=== PATIENT | male | born 1965 | race Caucasian/White ===

== ENCOUNTER 2016-12-14 11:27 | Emergency (ER) | payer MEDICAID ==
[~2016-12-14] VITALS: Ht 167.6 cm; Wt 73.5 kg
[~2016-12-14 11:27] MED LIST: MIRT45TA PO; RISP2TAB5 PO
[2016-12-14 11:34] VITALS: BP 112/68; PULSE 102; RESP 17; TEMP 97.7; O2SAT 98
[2016-12-14] MEDS ORDERED: KETOROLAC TROMETHAMINE 60 MG/2 ML VIAL IM ONE (12:00)
[2016-12-14] MEDS ORDERED: PROPOFOL DRIP 100 ML IV ONE (13:00)
[2016-12-14 13:55] VITALS: BP 122/67; PULSE 88; RESP 16; TEMP 98.2; O2SAT 99
== END 2016-12-14 13:46 | disposition home or self-care (01) ==
LOC: SED 11:27
DX: S16.1XXA Strain of muscle, fascia and tendon at neck level, initial encounter (principal); I10 Essential (primary) hypertension; X58.XXXA Exposure to other specified factors, initial encounter; Y93.89 Activity, other specified; Y92.89 Other specified places as the place of occurrence of the external cause; Y99.8 Other external cause status
CPT/HCPCS: 72125; 96372; 99284; J1885; J7030

== ENCOUNTER 2016-12-16 09:48 | Emergency (ER) | payer MEDICAID ==
[~2016-12-16] VITALS: Ht 167.6 cm; Wt 73.5 kg
[2016-12-16 09:53] VITALS: BP_SYST 106
[2016-12-16] MEDS ORDERED: CEPHALEXIN 500 MG CAPSULE PO ONE (11:15)
[2016-12-16] MEDS ORDERED: HYDROcodone/ACETAMIN 5-325 MG TAB (NORCO/ VICODIN) PO ONE (11:15)
[2016-12-16 11:52] VITALS: BP_SYST 144
== END 2016-12-16 11:51 | disposition home or self-care (01) ==
LOC: SED 09:48
DX: S60.131A Contusion of right middle finger with damage to nail, initial encounter (principal); I10 Essential (primary) hypertension; E03.9 Hypothyroidism, unspecified; W23.0XXA Caught, crushed, jammed, or pinched between moving objects, initial encounter; Y93.89 Activity, other specified; Y92.89 Other specified places as the place of occurrence of the external cause; Y99.8 Other external cause status
CPT/HCPCS: 99284

== ENCOUNTER 2018-09-08 12:15 | Emergency (ER) | payer MEDICARE, MEDICAID ==
[~2018-09-08] VITALS: Ht 167.6 cm; Wt 69.9 kg
[2018-09-08 12:35] VITALS: BP_SYST 122
[2018-09-08] MEDS ORDERED: ACETAMINOPHEN 500 MG TABLET PO ONE (13:30)
[2018-09-08 13:56] VITALS: BP_SYST 118
== END 2018-09-08 13:56 | disposition home or self-care (01) ==
LOC: SED 12:15
DX: S60.221A Contusion of right hand, initial encounter (principal); F41.9 Anxiety disorder, unspecified; F32.9 Major depressive disorder, single episode, unspecified; I10 Essential (primary) hypertension; Z86.79 Personal history of other diseases of the circulatory system; W20.8XXA Other cause of strike by thrown, projected or falling object, initial encounter; Y93.89 Activity, other specified; Y92.89 Other specified places as the place of occurrence of the external cause; Y99.8 Other external cause status
CPT/HCPCS: 99283

== ENCOUNTER 2019-03-10 23:58 | Emergency (ER) | payer MEDICARE, MEDICAID ==
[~2019-03-10] VITALS: Ht 167.6 cm; Wt 73.9 kg
[2019-03-11 00:15] VITALS: BP_SYST 120
[2019-03-11] MEDS ORDERED: KETOROLAC TROMETHAMINE 60 MG/2 ML VIAL IM ONE (01:30)
[2019-03-11 02:22] VITALS: BP_SYST 115
== END 2019-03-11 02:22 | disposition home or self-care (01) ==
LOC: SED 23:58
DX: S43.401A Unspecified sprain of right shoulder joint, initial encounter (principal); M75.91 Shoulder lesion, unspecified, right shoulder; I10 Essential (primary) hypertension; E03.9 Hypothyroidism, unspecified; F41.9 Anxiety disorder, unspecified; F32.9 Major depressive disorder, single episode, unspecified; Z88.8 Allergy status to other drugs, medicaments and biological substances; X50.0XXA Overexertion from strenuous movement or load, initial encounter; Y93.89 Activity, other specified; Y92.89 Other specified places as the place of occurrence of the external cause; Y99.8 Other external cause status
CPT/HCPCS: 73030; 96372; 99283; J1885

== ENCOUNTER 2020-09-17 15:59 | Emergency (ER) | payer MEDICARE, MEDICAID ==
[~2020-09-17] VITALS: Ht 167.6 cm; Wt 76.2 kg
[2020-09-17 17:00] VITALS: BP_SYST 105
[2020-09-17 17:14] VITALS: BP_SYST 105
== END 2020-09-17 17:14 | disposition home or self-care (01) ==
LOC: SED 15:59
DX: S86.912A Strain of unspecified muscle(s) and tendon(s) at lower leg level, left leg, initial encounter (principal); I10 Essential (primary) hypertension; E03.9 Hypothyroidism, unspecified; F41.9 Anxiety disorder, unspecified; G47.30 Sleep apnea, unspecified; X50.3XXA Overexertion from repetitive movements, initial encounter; Y93.89 Activity, other specified; Y92.89 Other specified places as the place of occurrence of the external cause; Y99.8 Other external cause status
CPT/HCPCS: 93971; 99284

== ENCOUNTER 2021-04-06 00:18 | Emergency (ER) | payer MEDICARE, MEDICAID ==
[~2021-04-06] VITALS: Ht 167.6 cm; Wt 74.4 kg
[2021-04-06 00:42] VITALS: BP_SYST 120
[2021-04-06] MEDS ORDERED: LIDOCAINE 1% 10 MG/ML, 20 ML MDV INJ ONE (02:30)
--- NOTE | 2021-04-06 02:35 | NUR ---
Came in ER ambulatory from home this 55 year old male, AAOX4, breathing spontaneously at room air, not in distress noted. With chief complaints right face swelling secondary to tooth infection for several days, no known medical/ no surgical surgery, vital signs stable.
--- NOTE | 2021-04-06 02:51 | NUR ---
Dr. Darcie ochoa at bedside, I and D at right upper maxillary tooth abscess under local anesthetic 1% Lidocaine. Ice water offered to gurgle and spit out.
--- NOTE | 2021-04-06 03:09 | NUR ---
Medications given as ordered, health teaching provided and verbalized understanding
[2021-04-06] MEDS ORDERED: AMOX-426 PO (03:10)
[2021-04-06] MEDS ORDERED: IBUP-1969 PO (03:10)
[2021-04-06] MEDS ORDERED: HYDR-3917 PO (03:10)
[2021-04-06] MEDS ORDERED: IBUPROFEN 600 MG TABLET PO ONE (03:15)
[2021-04-06] MEDS ORDERED: AMOXICILLIN/CLAVULANATE POTASSIUM 875 MG TABLET PO ONE (03:15)
[2021-04-06 03:21] VITALS: BP_SYST 120
--- NOTE | 2021-04-06 03:21 | NUR ---
Patient given written and verbal discharge instructions and verbalizes understanding. ER MD discussed with patient the results and treatment provided. Patient in stable condition. ID arm band removed. Rx of Augmentin, norco, ibuprofen given. Patient educated on pain management and to follow up with PMD. Pain Scale 2/10. Opportunity for questions provided and answered. Medication side effect fact sheet provided.
== END 2021-04-06 03:21 | disposition home or self-care (01) ==
LOC: SED 00:18
DX: K04.7 Periapical abscess without sinus (principal); Z79.899 Other long term (current) drug therapy
CPT/HCPCS: 99284